=== PATIENT | male | born 1985 | race African-American/Black ===

== ENCOUNTER 2019-06-15 02:31 | Emergency (ER) | payer SELFPAY ==
[~2019-06-15] VITALS: Ht 172.7 cm; Wt 79.5 kg
[2019-06-15 07:35] VITALS: BP 129/84
[2019-06-15] MEDS ORDERED: IBUPROFEN 800 MG TABLET PO ONE (08:00)
== END 2019-06-15 08:04 | disposition home or self-care (01) ==
LOC: EMS 02:32
DX: S63.602A Unspecified sprain of left thumb, initial encounter (principal); F12.90 Cannabis use, unspecified, uncomplicated; X58.XXXA Exposure to other specified factors, initial encounter; Y93.89 Activity, other specified; Y92.89 Other specified places as the place of occurrence of the external cause; Y99.8 Other external cause status

== ENCOUNTER 2019-06-18 01:50 | Emergency (ER) | payer SELFPAY ==
[~2019-06-18] VITALS: Ht 172.7 cm; Wt 79.5 kg
[2019-06-18] MEDS ORDERED: IBUPROFEN 600 MG TABLET PO ONE (03:15)
[2019-06-18 03:56] VITALS: BP 110/68
== END 2019-06-18 04:02 | disposition home or self-care (01) ==
LOC: EMS 01:51
DX: S63.601A Unspecified sprain of right thumb, initial encounter (principal); F12.90 Cannabis use, unspecified, uncomplicated; X58.XXXA Exposure to other specified factors, initial encounter; Y93.89 Activity, other specified; Y92.89 Other specified places as the place of occurrence of the external cause; Y99.8 Other external cause status